=== PATIENT | female | born 1965 | race Caucasian/White ===

== ENCOUNTER → 2016-07-02 | Outpatient (CLI) | payer BC ==
[~2016-07-02] MED LIST: BENZ100C97 PO; CITA20TA9 PO; CODE118S2 PO; FLUT16SP EA NOSTRIL; LISI-625 PO; PRED50TA PO; RANI150T12 PO
--- NOTE | 2016-07-02 10:58 | DI ---
Indication: ITS.REASON: S69.92XA LEFT THUMB INJURY PROCEDURE: HAND LEFT 3 VIEW: Encounter: Initial Comparison: None Findings: There is no acute fracture, dislocation or malalignment identified. No radiopaque foreign bodies identified. Impression: No acute osseous abnormality. .
== END ==
LOC: IMA 10:35
PROVIDERS: ATTEND Family Medicine
DX: Z03.89 Encounter for observation for other suspected diseases and conditions ruled out (principal)

== ENCOUNTER → 2017-03-22 14:10 | Observation (INO) ==
[2017-03-21 17:06] VITALS: BMI 35.2
--- NOTE | 2017-03-21 17:54 | OB/GYN History & Physical ---
- History of Present Illness Date of Admission: 03/21/17 16:39 Reason for Admission: vaginal bleeding History of Present Illness: 51 y/o presented to PCP with 13 day history of HMB, She reports normal cycles q 30 days with 3-5 days of average bleeding. She had onset of menses 13 days ago and bleeding has continued and is heavier than normal. She reports being lightheaded when standing and moving, Minimal Nausea and denies SEGOVIA. She has not taken anything for bleeding to date. She had recent Cholecystectomy this week and has done well since then. Has a family history of Grandfather with Prostate cancer but not family history of colon, endometrial, ovarian or breast cancer. Last menstrual period: 03/09/17 (Still bleeding) : 4 Para: 2 - OB History #1 Delivery Type: vaginal delivery #2 Delivery Type: vaginal delivery #3 Delivery Type: spontaneous #4 Delivery Type: ectopic Review of Systems - Constitutional Constitutional: Present: fatigue - Cardiovascular Cardiovascular: Absent: chest pain, palpitations, syncope - Respiratory Respiratory: Absent: cough, dyspnea, wheezing - Gastrointestinal Gastrointestinal: Absent: change in bowel habits, constipation, diarrhea, nausea , vomiting - Genitourinary Genitourinary: Present: abnormal vaginal bleeding Menstruation: Present: as per HPI - Musculoskeletal Musculoskeletal: Absent: arthralgias, back pain - Integumentary/Breasts Integumentary: Absent: pruritus, rash - Neurological Neurological: Absent: dizziness, headache(s), numbness - Psychiatric Psychiatric: Absent: anxiety, depression - Hematologic/Lymphatic Hematologic/Lymphatic: Absent: easy bleeding, easy bruising [facility] Patient Stated Medical History Migraine Yes Hypertension Yes: ON LISINOPRIL Sleep Apnea No Gastroesophageal Reflux Yes Disease Hx Urinary Tract Infection Yes: 01/2017 Anesthesia Reactions Yes: N&V Depression Yes: anxiety Ovarian Cysts Yes Other Reproductive Yes: eptopic Clinic Medical History (Last Updated 03/14/17 @ 16:03 by Jose Stoner) Compressed cervical disc (Chronic Medical) C6-C7 Depression (Chronic Medical) GERD (gastroesophageal reflux disease) (Chronic Medical) HTN (hypertension) (Chronic Medical) Anxiety (Acute Medical) Colon polyps (Acute Medical) Surgical History: * Colonoscopy/EGD - 02/08/[address] Gomez at [facility] in [place], [place]. Endoscopy revealed one Tubular adenoma. * Surgery for ectopic - [address] Lee Hanks at [facility] in [place], [place]. * Tonsillectomy - 1984 at [facility] in [place], [place]. Family History: Family History (Last Updated 03/14/17 @ 15:58 by Jose Stoner) Mother Heart attack Diabetes Father LUIS (obstructive sleep apnea) High cholesterol High blood pressure COPD (chronic obstructive pulmonary disease) Diabetes Sister Multiple sclerosis Sister Factor 5 Leiden mutation, heterozygous - Social History Smoking status: Never smoker Substance use type: does not use Alcohol intake: never Alcohol intake frequency: does not drink Housing: house Household members: spouse, children Medications Home Medications Medication Instructions Recorded Confirmed Type Effexor XR (venlafaxine ER) 75 mg 75 mg PO HS 03/14/17 03/21/17 History capsule,extended release 24 hr Prilosec OTC (Omeprazole 20 mg PO DAILY tab 03/14/17 03/21/17 History magnesium) 20 mg tablet,delayed release Lisinopril [Prinivil] 1 tab PO HS 03/21/17 03/21/17 History Allergies Allergy/AdvReac Type Severity Reaction Status Date / Time No Known Drug Allergies Allergy Unknown Verified 03/18/17 07:52 [employer]LET [employer] Exam - Constitutional Present: no acute distress, obese - Routine Neck Exam Present: supple, full ROM. Absent: JVD - Routine Respiratory Exam Present: CTA bilaterally - Routine Cardiovascular Exam Present: RRR - Routine Abdominal Exam Present: soft, normoactive bowel sounds, non distended, non tender Comments: INC C/D/I - Detailed Pelvic Exam Urethra: Present: normal Vulva: Present: normal Vagina: Present: normal Cervix: Present: normal Uterus: Present: enlarged (about 8 cm in size anteverted, Nontender, Mobile) Adnexa: bilateral: Normal (Ovaries Nonpalpable), Nontender - Routine Extremities Exam Extremities: Present: no edema, non tender, full ROM - Routine Neurological Exam Present: alert, oriented X3 - Routine Skin Exam Present: intact - Routine Psychiatric Exam Present: normal affect Assessment and Plan (1) Heavy menstrual bleeding Current visit: Yes Status: Acute HMB acute episode will start Aygestin 5 mg TID, Motrin 800 mg TID. IV iron. Pad counts, serial HgB and VS. Attempt medical management first if needed will proceed to OR for D&C. Pt advised will need eval of Endometrium EMBX or Hysteroscopy D&C at some point due to age and HMB. Hysterectomy would be remote from acute bleeding episode. (2) Acute blood loss anemia Current visit: Yes Status: Acute CBC, Start IV Iron, Pharmacy consult. Type and screen, Will monitor and type and cross if needed discussed Transfusion R/B/A if transfusion needed would start with 1 unit.
[2017-03-21] MEDS: LR 1,000 ML IV SCH (18:00)
--- NOTE | 2017-03-21 18:06 | Pharmacy Consult ---
Pharmacy Consult-Iron - Consult Information IV IRON CONSULT: Dx: BLOOD LOSS Actual body weight = 87.2kg Hgb Level = 8.6 g/dL Calculated Dosing weight = 50.1 kg Total dose needed: 1350 mg (27 mL) Will give test dose of 25mg IV push over 30 seconds. Watch VS q 15 minutes x 1 hr. (watching for anaphylaxis, respiratory distress, hives.) If no reaction will give full dose in NS 500ml TRA 125ml/hr. Watch VS q 1 hr during infusion. Thank you.
[2017-03-21] MEDS: IBUPROFEN 800 MG TABLET PO SCH (18:35)
[2017-03-21] MEDS: NORETHINDRONE 5 MG TABLET PO SCH ×2 (19:24→21:42)
[2017-03-21] MEDS: HYDROCODONE/APAP 5mg/325mg TABLET PO PRN (21:57)
[2017-03-21 23:30] VITALS: RESP 16
[2017-03-22] MEDS: IBUPROFEN 800 MG TABLET PO SCH ×2 (01:04→10:20)
[2017-03-22] MEDS: LR 1,000 ML IV SCH (03:31)
[2017-03-22] MEDS: HYDROCODONE/APAP 5mg/325mg TABLET PO PRN (04:32)
--- NOTE | 2017-03-22 07:20 | OB/GYN Progress Note ---
[employer] Progress Note - Subjective Today's Date: 03/22/17 Pt doing well, some nausea overnight, had post op pain in middle of night that required Narcotic. Doing well this am. Had 4 pads form admission to 10 pm last night and 2 pads overnight. Reports she thinks 50% decrease in bleeding. - Objective Vital signs: Temperature 97.3 F 03/21/17 23:26 Pulse Rate 75 03/21/17 23:26 Respiratory Rate 16 03/21/17 23:26 Blood Pressure 112/61 03/21/17 23:26 Pulse Oximetry 96 03/21/17 23:26 General: alert and oriented Cardiovascular: regular rate,rhythm Respiratory: non-labored Respiratory Auscultation: clear bilaterally Abdomen: non-tender, non-distended Extremities: non-tender Edema: none Laboratory Result: 03/21/17 18:05 - Assessment and Plan (1) Heavy menstrual bleeding Assessment and Plan: Bleeding has decreased with Aygestin TID, Repeat HgB this am. IV iron completed. If HgB stable and bleeding continues to slow and VSS will dismiss to home this afternoon. Will need f/u 1-2 weeks.
[2017-03-22 07:27] VITALS: BP 126/69; PULSE 76; TEMP 98; O2SAT 97
[2017-03-22] MEDS: NORETHINDRONE 5 MG TABLET PO SCH (10:20)
[~2017-03-22 14:10] MED LIST changes: -BENZ100C97 PO; -CITA20TA9 PO; -CODE118S2 PO; +DOCUSATE SODIUM 100 MG CAPSULE PO PRN; -FLUT16SP EA NOSTRIL; +IRON - PHARMACY CONSULT MC ONE; +IRON DEXTRAN COMPLEX 100mg/2ml INJECTION IV ONE; +IRON DEXTRAN IV SCH; -LISI-625 PO; +LISINOPRIL 10 MG TABLET PO SCH; +NS IV SCH; +OMEPRAZOLE 20 MG CAPSULE PO SCH; +ONDANSETRON ODT 4 MG TABLET PO PRN; -PRED50TA PO; -RANI150T12 PO; +Venlaflaxine XR 75 MG CAPSULE (24hr) PO SCH
--- NOTE | 2017-03-23 10:10 | Ultrasound Report ---
Indication: Heavy Vaginal Bleeding PROCEDURE: US pelvic non-ob w transvag: Encounter: Initial Comparison: None Technique: Grayscale and color Doppler sonographic pelvic imaging was performed. FINDINGS: Transvaginal and transabdominal pelvic imaging was performed. The uterus measures 9.9 x 4.1 x 5.8 cm. The parenchyma is homogeneous without fibroids. The endometrial stripe measures 14 mm in thickness. There is no evidence of focal endometrial mass or increased internal vascularity on Doppler imaging. Right ovary is not seen and reportedly surgically absent. Left ovary shows a large hypoechoic 4.3 cm simple appearing cyst. Left ovary measures 4.7 x 2.8 x 3.9 cm. Normal Doppler flow to the left ovary. IMPRESSION: Mildly thickened endometrial stripe without focal mass. No sonographically apparent uterine fibroid. There is a preliminary report by [facility]. .
== END | disposition home or self-care (01) ==
LOC: SRG
PROVIDERS: ADMIT Obstetrics & Gynecology; ATTEND Obstetrics & Gynecology